=== PATIENT | female | born 1960 | race Caucasian/White ===

== ENCOUNTER 2017-11-14 14:26 | Observation (INO) | payer OTHER ==
[~2017-11-14] VITALS: Ht 157.5 cm; Wt 105.9 kg
[2017-11-14 15:26] LABS: BASOPHILS # (AUTO) 0.03 x10^3/uL (0-0.1); BASOPHILS % (AUTO) 0 % (0-1); EOSINOPHILS # (AUTO) 0.15 x10^3/uL (0-0.4); EOSINOPHILS % (AUTO) 2 % (1-7); LYMPHOCYTES # (AUTO) 2.23 x10^3/uL (1-3.4); LYMPHOCYTES % (AUTO) 25 % (22-44); MD NO; MEAN CORPUSCULAR HEMOGLOBIN 31.7 pg (27.0-34.8); MEAN CORPUSCULAR VOLUME 93.2 fL (80-100); MEAN PLATELET VOLUME 8.5 fL (7.4-10.4); MONOCYTES # (AUTO) 0.68 x10^3/uL (0.2-0.8); MONOCYTES % (AUTO) 8 % (2-9); NEUTROPHILS # (AUTO) 5.92 x10^3/uL (1.8-6.8); NEUTROPHILS % (AUTO) 66 % (42-75); PLATELET COUNT 280 x10^3/uL (130-400); RED BLOOD COUNT 4.97 x10^6/uL (3.82-5.3); RED CELL DISTRIBUTION WIDTH 13.3 % (9.6-15.2)
[2017-11-14] MEDS ORDERED: ALBU8.5H8 INH (15:26)
[2017-11-14] MEDS ORDERED: MAGN400T7 PO (15:26)
[2017-11-14] MEDS ORDERED: BIOT25005 PO (15:26)
[2017-11-14] MEDS ORDERED: LISI1TAB3 PO (15:26)
[2017-11-14] MEDS ORDERED: BECL8.7A7 INH (15:26)
[2017-11-14] MEDS ORDERED: POTA8TAB PO (15:26)
[2017-11-14 15:37] LABS: ALBUMIN 4.1 g/dL (3.4-5.0); ANION GAP 6 mmol/L (5-15); CALCIUM 9.8 mg/dL (8.5-10.1); CHLORIDE 103 mmol/L (98-107); CREATININE 0.89 mg/dL (0.55-1.02)
[2017-11-14 15:41] LABS: TROPONIN I < 0.015 ng/mL (0.000-0.045)
[2017-11-14 17:21] VITALS: BP 130/60
[2017-11-14] MEDS: INSULIN LISPRO 100 UNITS/ML, PEN SQ-INSULIN SCH ×2 (17:24→21:40)
[2017-11-14] MEDS ORDERED: ENOXAPARIN 40 MG/0.4 ML SQ SCH (17:30)
[2017-11-14] MEDS ORDERED: NITROGLYCERIN 0.4 MG BOTTLE (25 TABS) SL PRN (17:30)
[2017-11-14] MEDS ORDERED: ENALAPRILAT 1.25 MG/ML, 2ML IVPush PRN (17:30)
[2017-11-14] MEDS ORDERED: ONDANSETRON 2MG/ML, 2ML IVPush PRN (17:30)
[2017-11-14] MEDS ORDERED: MORPHINE SULFATE 4 MG/ML, 1ML IVPush PRN (17:30)
[2017-11-14 17:36] LABS: INTERNATIONAL NORMALIZED RATIO 0.92 (0.93-1.1); PROTHROMBIN TIME 9.6 Seconds (9.6-11.5)
[2017-11-14 17:45] LABS: FREE T4 (FREE THYROXINE) 0.89 ng/dL (0.76-1.46); THYROID STIMULATING HORMONE 1.66 mIU/L (0.358-3.740)
[2017-11-14 17:50] LABS: HEMOGLOBIN A1C 6.8 % (4.2-6.3)
[2017-11-14] MEDS ORDERED: ESCI5TAB PO (18:02)
[2017-11-14] MEDS ORDERED: ATORVASTATIN 40 MG TABLET PO SCH (21:00)
[2017-11-14 21:12] LABS: TROPONIN I < 0.015 ng/mL (0.000-0.045)
[2017-11-14 21:32] VITALS: BP 137/79
[2017-11-14] MEDS: MAGNESIUM OXIDE 400 MG TABLET PO SCH (21:37)
[2017-11-14] MEDS: BECLOMETHASONE DIPROPIONATE 80 MCG INH SCH (21:37)
[2017-11-14] MEDS: HYDROCHLOROTHIAZIDE 12.5 MG CAPSULE PO SCH (21:37)
[2017-11-14] MEDS: ALBUTEROL SULFATE 90 MCG INH SCH (21:37)
[2017-11-14] MEDS: LISINOPRIL 10 MG TABLET PO SCH (21:37)
[2017-11-15 03:16] VITALS: BP 124/77
[2017-11-15 03:31] LABS: BASOPHILS # (AUTO) 0.02 x10^3/uL (0-0.1); BASOPHILS % (AUTO) 0 % (0-1); EOSINOPHILS # (AUTO) 0.23 x10^3/uL (0-0.4); EOSINOPHILS % (AUTO) 3 % (1-7); LYMPHOCYTES # (AUTO) 2.67 x10^3/uL (1-3.4); LYMPHOCYTES % (AUTO) 32 % (22-44); MD NO; MEAN CORPUSCULAR HEMOGLOBIN 32.6 pg (27.0-34.8); MEAN CORPUSCULAR HGB CONC 34.9 g/dL (32.4-35.8); MEAN CORPUSCULAR VOLUME 93.6 fL (80-100); MEAN PLATELET VOLUME 8.3 fL (7.4-10.4); MONOCYTES # (AUTO) 0.71 x10^3/uL (0.2-0.8); MONOCYTES % (AUTO) 8 % (2-9); NEUTROPHILS # (AUTO) 4.83 x10^3/uL (1.8-6.8); NEUTROPHILS % (AUTO) 57 % (42-75); PLATELET COUNT 255 x10^3/uL (130-400); RED BLOOD COUNT 4.56 x10^6/uL (3.82-5.3); RED CELL DISTRIBUTION WIDTH 13.5 % (9.6-15.2)
[2017-11-15 03:39] LABS: ALANINE AMINOTRANSFERASE 47 U/L (12-78); ALBUMIN 3.5 g/dL (3.4-5.0); ANION GAP 9 mmol/L (5-15); CALCIUM 9.1 mg/dL (8.5-10.1); CHLORIDE 103 mmol/L (98-107); CREATININE 0.93 mg/dL (0.55-1.02)
[2017-11-15 03:44] LABS: ALKALINE PHOSPHATASE 29 U/L (45-117); BILIRUBIN,TOTAL 0.4 mg/dL (0.2-1.0); TOTAL PROTEIN 6.9 g/dL (6.4-8.2); TROPONIN I < 0.015 ng/mL (0.000-0.045)
[2017-11-15] MEDS: ALBUTEROL SULFATE 90 MCG INH SCH ×2 (05:42→11:00)
[2017-11-15] MEDS ORDERED: ASPIRIN 81 MG TABLET EC PO SCH (06:00)
[2017-11-15] MEDS: LISINOPRIL 10 MG TABLET PO SCH (07:47)
[2017-11-15] MEDS: HYDROCHLOROTHIAZIDE 12.5 MG CAPSULE PO SCH (07:47)
[2017-11-15] MEDS: MAGNESIUM OXIDE 400 MG TABLET PO SCH (07:47)
[2017-11-15] MEDS ORDERED: REGADENOSON 0.4 MG/5 ML SYRINGE ONE (08:07)
[2017-11-15 08:28] VITALS: BP 123/79
[2017-11-15] MEDS: INSULIN LISPRO 100 UNITS/ML, PEN SQ-INSULIN SCH ×2 (08:34→11:58)
[2017-11-15] MEDS ORDERED: TEMPLATE NON-FORMULARY MED. (Biotin** 5,000 MG) PO SCH (09:00)
[2017-11-15] MEDS: BECLOMETHASONE DIPROPIONATE 80 MCG INH SCH (09:00)
[2017-11-15] MEDS ORDERED: ASPI-621 PO (12:37)
[2017-11-15] MEDS ORDERED: METF500T PO (12:37)
[2017-11-15 12:45] VITALS: BP 160/77
[2017-11-15 13:46] VITALS: BP 142/89
== END 2017-11-15 15:15 | disposition home or self-care (01) ==
LOC: ED 16:09 → INTOOBSV 16:10 → EDIP 16:10 → ED 16:17 → 5SO 17:12
PROVIDERS: ADMIT Internal Medicine; ATTEND Internal Medicine
DX: R07.89 Other chest pain (principal); E11.9 Type 2 diabetes mellitus without complications; E66.01 Morbid (severe) obesity due to excess calories; E78.5 Hyperlipidemia, unspecified; F41.9 Anxiety disorder, unspecified; G47.33 Obstructive sleep apnea (adult) (pediatric); I10 Essential (primary) hypertension; J45.909 Unspecified asthma, uncomplicated; F17.210 Nicotine dependence, cigarettes, uncomplicated; Z79.82 Long term (current) use of aspirin
CPT/HCPCS: 36415; 71045; 78452; 80048; 80053; 82040; 82962; 83036; 83735; 83880; 84439; 84443; 84484; 85025; 85610; 85730; 93005; 93017; 96372; 99285; A9502; C9898; G0378; J1650; J1815; J2785